=== PATIENT | female | born 1990 | race Caucasian/White ===

== ENCOUNTER → 2022-06-29 | Outpatient (CLI) | payer OTHER ==
[~2022-06-29] MED LIST: FERR240T9 PO; HYDR-3729 PO; PNT40TEC PO
--- NOTE | 2022-06-29 17:14 | Diagnostic Imaging Report ---
EXAMINATION: Left hand radiographs, 3 views. COMPARISON: None. HISTORY: 32-year-old female, left hand pain. FINDINGS: There is a mildly comminuted essentially nondisplaced fracture involving the tuft of the fourth distal phalanx. There is no identified radiopaque foreign body. There is no subluxation or dislocation. IMPRESSION: 1. Mildly comminuted essentially nondisplaced fracture involving the tuft of the fourth distal phalanx. 2. No identified radiopaque foreign body. Dictated by: Dictated on workstation # [id number]
== END ==
LOC: RAD FS 11:26
PROVIDERS: ATTEND Nurse Practitioner
DX: S62.663A Nondisplaced fracture of distal phalanx of left middle finger, initial encounter for closed fracture (principal); X58.XXXA Exposure to other specified factors, initial encounter
CPT/HCPCS: 73130

== ENCOUNTER → 2022-07-20 | Outpatient (CLI) | payer OTHER ==
--- NOTE | 2022-07-20 13:27 | Diagnostic Imaging Report ---
INDICATION: Followup fracture. COMPARISON: 06/29/2022 FINDINGS: Multiple radiographic views of the 4th finger of the left hand were obtained. Again identified is comminuted tuft fracture of the distal phalanx. Fracture fragments are in stable alignment. There is no appreciable bridging callus formation or other evidence of significant interval healing. No new acute osseous abnormalities seen. No unexpected radiopaque foreign bodies are identified. IMPRESSION:. Stable appearing tuft fracture of the 4th distal phalanx as above. Dictated by: Dictated on workstation # [id number]
== END ==
LOC: RAD FS 11:07
PROVIDERS: ATTEND Nurse Practitioner
DX: S62.635D Displaced fracture of distal phalanx of left ring finger, subsequent encounter for fracture with routine healing (principal); X58.XXXD Exposure to other specified factors, subsequent encounter
CPT/HCPCS: 73140

== ENCOUNTER → 2022-08-21 | Outpatient (CLI) | payer OTHER ==
--- NOTE | 2022-08-21 17:12 | Diagnostic Imaging Report ---
INDICATION: Follow-up fracture, pain. COMPARISON: 07/20/2022 and 06/29/2022 TECHNIQUE: 4 radiographs of the left hand, particularly the left hand 4th finger dated 08/21/2022. FINDINGS: Comminuted fracturing of the tuft of the 4th digit distal phalanx is again identified. Alignment is stable from the prior examination. No definite callus formation or periosteal reaction. No new fracture or dislocation. No destructive osseous process. No suspicious radiopaque foreign body. IMPRESSION: Essentially stable mildly comminuted fracturing involving the tuft of the 4th digit distal phalanx without significant healing identified at this time. No new acute osseous abnormality. Dictated by: Dictated on workstation # [id number]
== END ==
LOC: RAD FS 10:54
PROVIDERS: ATTEND Nurse Practitioner
DX: S62.635D Displaced fracture of distal phalanx of left ring finger, subsequent encounter for fracture with routine healing (principal); X58.XXXD Exposure to other specified factors, subsequent encounter
CPT/HCPCS: 73140